=== PATIENT | female | born 1995 | race Caucasian/White ===

== ENCOUNTER 2018-04-21 10:55 | Inpatient (IN) | payer MEDICAID ==
[~2018-04-21] VITALS: Ht 157.5 cm; Wt 70.3 kg
[2018-04-21] MEDS ORDERED: SODIUM CHLORIDE 0.9% 500 ML IVB ONE (11:32)
[2018-04-21] MEDS ORDERED: MORPHINE SULF INJ 2 MG/ML SYRINGE 1ML IV ONE ×2 (11:45)
[2018-04-21] MEDS ORDERED: ONDANSETRON HCL 4 MG/2 ML VIAL IV ONE (11:45)
[2018-04-21 11:47] LABS: Urine Bacteria FEW /hpf (None Seen); Urine Blood TRACE /uL (Negative); Urine Mucus FEW (None Seen); Urine Specific Gravity 1.017 (1.001-1.035); Urine WBC 6 /hpf (0 - 5)
[2018-04-21 11:57] LABS: Basophils # (auto) 0 uL; Basophils % (auto) 0.1 % (0.0-2.0); Eosinophils # (auto) 0 uL; Hematocrit 38.7 % (36.0-46.0); Hemoglobin 12.9 g/dL (12.2-16.2); Lymphocytes # (auto) 0.5 uL; Lymphocytes % (auto) 4.6 % (10.0-50.0); Mean Corpuscular Hemoglobin 28.2 pg (28.0-32.0); Mean Corpuscular Hgb Conc. 33.4 g/dL (32.0-36.0); Mean Corpuscular Volume 84.4 fL (80.0-100.0); Monocytes # (auto) 0.7 uL; Monocytes % (auto) 6.2 % (0.0-12.0); Neutrophils # (auto) 10.2 uL; Neutrophils % (auto) 89.1 % (37.0-80.0); Platelet Count (auto) 179 10^3/uL (140-450); Red Blood Cells 4.59 10^6/uL (4.0-5.20); Red Cell Distribution Width 17.8 % (11.8-14.3); White Blood Cell 11.5 10^3/uL (4.4-10.8)
[2018-04-21 13:01] LABS: Alkaline Phosphatase 68 U/L (45-117); Anion Gap 7 (5-15); BUN/Creatinine Ratio 13.3; Blood Urea Nitrogen 10 mg/dL (7-18); Carbon Dioxide 22 mmol/L (21-32); Chloride 105 mmol/L (98-107); GFR African American 124 mL/min; GFR Non-African American 103 mL/min; Glucose 89 mg/dL (74-106); Potassium 3.2 mmol/L (3.5-5.1); Sodium 134 mmol/L (136-145)
[2018-04-21 13:02] LABS: Alanine Aminotransferase 21 U/L (13-56); Aspartate Aminotransferase 16 U/L (15-37); Bilirubin, Total 0.3 mg/dL (0.2-1.0); Calcium 7.7 mg/dL (8.5-10.1); Lipase 43 U/L (73-393); Magnesium 1.7 mg/dL (1.6-2.6); Total Protein 7.1 g/dL (6.4-8.2)
[2018-04-21] MEDS ORDERED: SODIUM CHLORIDE 0.9% 1,000 ML IV SCH (13:41)
[2018-04-21] MEDS ORDERED: MORPHINE SULF INJ 2 MG/ML SYRINGE 1ML IV PRN (13:45)
[2018-04-21] MEDS ORDERED: cefTRIAXone 1GM/10ml IVPUSH 10 ML IV ONE (13:45)
[2018-04-21] MEDS ORDERED: NITROGLYCERIN 0.4 MG SL TAB SL PRN (13:45)
[2018-04-21] MEDS ORDERED: ACETAMINOPHEN 500 MG TAB PO PRN (13:45)
[2018-04-21] MEDS ORDERED: PIPERACILLIN-TAZOB 3.375GM 100 ML IV ONE (14:00)
[2018-04-21] MEDS: FAMOTIDINE (10MG/ML) 2ML VL IV SCH (14:17)
[2018-04-21] MEDS: MORPHINE SULF INJ 2 MG/ML SYRINGE 1ML IV PRN ×2 (14:17→19:38)
[2018-04-21] MEDS: ONDANSETRON HCL 4 MG/2 ML VIAL IV PRN ×2 (14:17→23:38)
[2018-04-21] MEDS: metroNIDAZOLE 500MG/100ML 100 ML IV SCH ×2 (14:17→20:03)
[2018-04-21 14:30] LABS: Hematocrit 37.6 % (36.0-46.0); Hemoglobin 12.6 g/dL (12.2-16.2)
[2018-04-21] MEDS ORDERED: SOD CHL 0.9%/ KCL 20MEQ 1,000 ML IV SCH ×2 (15:00→21:15)
[2018-04-21 16:54] VITALS: BP 98/51
[2018-04-21] MEDS: PIPERACILLIN-TAZOB 3.375GM 100 ML IV SCH (17:48)
[2018-04-21 18:37] VITALS: BP 98/51
[2018-04-21] MEDS ORDERED: CLINIMIX PER PHARMACY 0 ML IV SCH (18:45)
[2018-04-21 20:31] LABS: Hematocrit 36.5 % (36.0-46.0); Hemoglobin 12.2 g/dL (12.2-16.2)
[2018-04-21] MEDS ORDERED: AMINO ACID INFUSION IN D10W 1,000 ML IV NR (21:15)
[2018-04-21] MEDS ORDERED: DEXTROSE (50%) 50ML SYRG IV SCH (21:15)
[2018-04-21] MEDS ORDERED: MAGNESIUM SULFATE 1GM/100ML 100 ML IV ONE (21:30)
[2018-04-21 21:45] VITALS: BP 99/58
[2018-04-21] MEDS: POTASSIUM CHL 20MEQ/100ML 100 ML IV SCH (22:42)
[2018-04-21] MEDS: TEMAZEPAM 15 MG CAP PO PRN (23:11)
[2018-04-21] MEDS: HYDROcodone-ACET 5/325MG TAB PO PRN (23:38)
[2018-04-22] MEDS: PIPERACILLIN-TAZOB 3.375GM 100 ML IV SCH ×2 (00:19→06:04)
[2018-04-22] MEDS: ACCU-CHEK COMFORT CURVE STRIP VI SCH ×4 (00:35→17:53)
[2018-04-22] MEDS: POTASSIUM CHL 20MEQ/100ML 100 ML IV SCH (01:54)
[2018-04-22] MEDS: FAMOTIDINE (10MG/ML) 2ML VL IV SCH ×2 (01:56→15:08)
[2018-04-22] MEDS: metroNIDAZOLE 500MG/100ML 100 ML IV SCH ×4 (01:57→21:04)
[2018-04-22 02:26] LABS: Hematocrit 37.3 % (36.0-46.0); Hemoglobin 12.2 g/dL (12.2-16.2)
[2018-04-22 05:00] VITALS: BP 87/52
[2018-04-22] MEDS: InsuLIN REG 1unit/0.01ml Soln (100units/ml) SC SCH ×4 (06:00→17:53)
[2018-04-22 07:13] LABS: Basophils # (auto) 0 uL; Basophils % (auto) 0.2 % (0.0-2.0); Eosinophils # (auto) 0.1 uL; Eosinophils % (auto) 2.3 % (0.0-7.0); Hematocrit 31.8 % (36.0-46.0); Hemoglobin 10.8 g/dL (12.2-16.2); Lymphocytes % (auto) 15.9 % (10.0-50.0); Mean Corpuscular Hemoglobin 28.8 pg (28.0-32.0); Mean Corpuscular Hgb Conc. 34.2 g/dL (32.0-36.0); Mean Corpuscular Volume 84.3 fL (80.0-100.0); Monocytes # (auto) 0.8 uL; Monocytes % (auto) 12.2 % (0.0-12.0); Neutrophils # (auto) 4.3 uL; Neutrophils % (auto) 69.4 % (37.0-80.0); Nucleated Red Blood Cells % 0.1 %; Platelet Count (auto) 160 10^3/uL (140-450); Red Blood Cells 3.77 10^6/uL (4.0-5.20); Red Cell Distribution Width 18.1 % (11.8-14.3); White Blood Cell 6.2 10^3/uL (4.4-10.8)
[2018-04-22 07:40] LABS: Albumin 2.4 g/dL (3.4-5.0); BUN/Creatinine Ratio 9.7; Bilirubin, Total 0.1 mg/dL (0.2-1.0); Calcium 7.2 mg/dL (8.5-10.1); Magnesium 2.4 mg/dL (1.6-2.6); Phosphorus 1.6 mg/dL (2.5-4.90); Potassium 4.6 mmol/L (3.5-5.1); Pre Albumin 8.8 mg/dL (20.0-40.0); Total Protein 5.7 g/dL (6.4-8.2)
[2018-04-22 08:00] VITALS: BP 91/57
[2018-04-22 09:00] VITALS: BP 91/57
[2018-04-22] MEDS ORDERED: cefTRIAXone 1GM/10ml IVPUSH 10 ML IV SCH (09:00)
[2018-04-22] MEDS: HYDROcodone-ACET 5/325MG TAB PO PRN (09:22)
[2018-04-22] MEDS: ONDANSETRON HCL 4 MG/2 ML VIAL IV PRN (09:34)
[2018-04-22] MEDS ORDERED: SODIUM PHOSPHATES 24 MEQ in SODIUM CHL 0.9% 100 ML IV ONE (10:45)
[2018-04-22] MEDS ORDERED: SODIUM PHOSPHATES 40 MEQ in D5W 5% 250 ML IV ONE (11:30)
[2018-04-22] MEDS: D5W/SOD CHLO 0.9% 1,000 ML IV SCH ×2 (11:41→22:07)
[2018-04-22] MEDS: LORazepam 0.5 MG TAB PO PRN ×2 (11:56→21:17)
[2018-04-22 13:00] VITALS: BP 93/49
[2018-04-22] MEDS: KETOROLAC TROMETH 30 MG/ML 1ML VIAL IV PRN ×2 (15:08→21:16)
[2018-04-22 17:00] VITALS: BP 88/52
[2018-04-22] MEDS ORDERED: HYDROcodone-ACET 5/325MG TAB PO ONE (18:45)
[2018-04-22] MEDS ORDERED: CLINIMIX PER PHARMACY IV NR ×5 (20:00)
[2018-04-22 22:00] VITALS: BP 100/58
[2018-04-22] MEDS: TEMAZEPAM 15 MG CAP PO PRN (22:08)
[2018-04-23] MEDS: FAMOTIDINE (10MG/ML) 2ML VL IV SCH ×2 (01:49→15:46)
[2018-04-23] MEDS: metroNIDAZOLE 500MG/100ML 100 ML IV SCH ×4 (03:48→20:45)
[2018-04-23 05:00] VITALS: BP 101/52
[2018-04-23 05:45] LABS: Basophils # (auto) 0 uL; Basophils % (auto) 0.6 % (0.0-2.0); Eosinophils # (auto) 0.1 uL; Eosinophils % (auto) 3.5 % (0.0-7.0); Lymphocytes # (auto) 1.1 uL; Lymphocytes % (auto) 31.3 % (10.0-50.0); Mean Corpuscular Hemoglobin 28.1 pg (28.0-32.0); Mean Corpuscular Hgb Conc. 33.4 g/dL (32.0-36.0); Mean Corpuscular Volume 84.2 fL (80.0-100.0); Monocytes # (auto) 0.4 uL; Monocytes % (auto) 10.4 % (0.0-12.0); Neutrophils % (auto) 54.2 % (37.0-80.0); Nucleated Red Blood Cells % 0.2 %; Platelet Count (auto) 165 10^3/uL (140-450); Red Blood Cells 3.92 10^6/uL (4.0-5.20); Red Cell Distribution Width 18.4 % (11.8-14.3); White Blood Cell 3.6 10^3/uL (4.4-10.8)
[2018-04-23 06:25] LABS: Albumin 2.6 g/dL (3.4-5.0); BUN/Creatinine Ratio 13.5; Bilirubin, Total 0.3 mg/dL (0.2-1.0); Calcium 7.8 mg/dL (8.5-10.1); Magnesium 2.2 mg/dL (1.6-2.6); Phosphorus 3.1 mg/dL (2.5-4.90); Potassium 3.3 mmol/L (3.5-5.1); Total Protein 5.9 g/dL (6.4-8.2)
[2018-04-23] MEDS: InsuLIN REG 1unit/0.01ml Soln (100units/ml) SC SCH ×4 (06:51→17:07)
[2018-04-23] MEDS: D5W/SOD CHLO 0.9% 1,000 ML IV SCH (06:52)
[2018-04-23] MEDS: ACCU-CHEK COMFORT CURVE STRIP VI SCH ×4 (06:52→16:45)
[2018-04-23 08:00] VITALS: BP 97/60
[2018-04-23] MEDS: LORazepam 0.5 MG TAB PO PRN ×2 (08:35→17:52)
[2018-04-23 08:42] VITALS: BP 97/60
[2018-04-23] MEDS: MORPHINE SULFATE 4 MG/ML SYR/VIAL IV PRN ×3 (09:43→21:04)
[2018-04-23] MEDS: POTASSIUM CHL 20 Meq TABLET PO SCH ×2 (09:43→20:45)
[2018-04-23] MEDS: SODIUM CHLORIDE 0.9% 1,000 ML IV SCH ×2 (09:44→20:43)
[2018-04-23 12:22] VITALS: BP 98/60
[2018-04-23] MEDS: KETOROLAC TROMETH 30 MG/ML 1ML VIAL IV PRN (13:25)
[2018-04-23 16:51] VITALS: BP 97/51
[2018-04-23] MEDS ORDERED: CLINIMIX PER PHARMACY IV NR ×6 (20:00)
[2018-04-23 21:55] VITALS: BP 106/65
[2018-04-23] MEDS: TEMAZEPAM 15 MG CAP PO PRN (23:22)
[2018-04-24] MEDS: InsuLIN REG 1unit/0.01ml Soln (100units/ml) SC SCH ×2 (00:59→06:00)
[2018-04-24] MEDS: ACCU-CHEK COMFORT CURVE STRIP VI SCH ×2 (01:00→06:10)
[2018-04-24] MEDS: FAMOTIDINE (10MG/ML) 2ML VL IV SCH ×2 (01:45→01:56)
[2018-04-24] MEDS: metroNIDAZOLE 500MG/100ML 100 ML IV SCH (01:56)
[2018-04-24] MEDS: LORazepam 0.5 MG TAB PO PRN ×3 (02:00→18:15)
[2018-04-24] MEDS: SODIUM CHLORIDE 0.9% 1,000 ML IV SCH ×2 (02:14→14:53)
[2018-04-24 05:08] VITALS: BP 137/76
[2018-04-24 07:38] LABS: Basophils # (auto) 0 uL; Basophils % (auto) 0.3 % (0.0-2.0); Eosinophils # (auto) 0.1 uL; Eosinophils % (auto) 1.6 % (0.0-7.0); Hematocrit 35.7 % (36.0-46.0); Hemoglobin 11.7 g/dL (12.2-16.2); Lymphocytes # (auto) 0.9 uL; Lymphocytes % (auto) 20.4 % (10.0-50.0); Mean Corpuscular Hemoglobin 27.5 pg (28.0-32.0); Mean Corpuscular Hgb Conc. 32.8 g/dL (32.0-36.0); Mean Corpuscular Volume 83.9 fL (80.0-100.0); Monocytes # (auto) 0.4 uL; Monocytes % (auto) 7.8 % (0.0-12.0); Neutrophils # (auto) 3.2 uL; Neutrophils % (auto) 69.9 % (37.0-80.0); Nucleated Red Blood Cells % 0.1 %; Platelet Count (auto) 185 10^3/uL (140-450); Red Blood Cells 4.26 10^6/uL (4.0-5.20); Red Cell Distribution Width 18.2 % (11.8-14.3); White Blood Cell 4.6 10^3/uL (4.4-10.8)
[2018-04-24 07:54] LABS: Albumin 2.8 g/dL (3.4-5.0); BUN/Creatinine Ratio 12.5; Bilirubin, Total 0.2 mg/dL (0.2-1.0); Magnesium 1.8 mg/dL (1.6-2.6); Phosphorus 2.9 mg/dL (2.5-4.90); Potassium 4.1 mmol/L (3.5-5.1); Total Protein 6.6 g/dL (6.4-8.2)
[2018-04-24 09:00] VITALS: BP 101/60
[2018-04-24] MEDS: MORPHINE SULFATE 4 MG/ML SYR/VIAL IV PRN ×3 (09:50→20:37)
[2018-04-24] MEDS: ONDANSETRON HCL 4 MG/2 ML VIAL IV PRN ×2 (09:50→14:51)
[2018-04-24 13:09] VITALS: BP 100/58
[2018-04-24] MEDS: Ensure Enlive Strawberry 8oz Bottle PO SCH ×2 (13:45→17:42)
[2018-04-24 16:47] VITALS: BP 107/68
[2018-04-24 22:00] VITALS: BP 111/73
[2018-04-24] MEDS: TEMAZEPAM 15 MG CAP PO PRN (23:05)
[2018-04-24] MEDS: KETOROLAC TROMETH 30 MG/ML 1ML VIAL IV PRN (23:13)
[2018-04-25] MEDS: FAMOTIDINE (10MG/ML) 2ML VL IV SCH (01:45)
[2018-04-25] MEDS: SODIUM CHLORIDE 0.9% 1,000 ML IV SCH ×2 (03:39→11:15)
[2018-04-25 05:29] VITALS: BP 117/82
[2018-04-25] MEDS: LORazepam 0.5 MG TAB PO PRN (06:05)
[2018-04-25 07:24] LABS: BUN/Creatinine Ratio 17.9; Basophils # (auto) 0 uL; Basophils % (auto) 0.4 % (0.0-2.0); Calcium 7.9 mg/dL (8.5-10.1); Eosinophils # (auto) 0.1 uL; Eosinophils % (auto) 2.5 % (0.0-7.0); Hematocrit 35.1 % (36.0-46.0); Hemoglobin 11.9 g/dL (12.2-16.2); Lymphocytes # (auto) 1.5 uL; Lymphocytes % (auto) 26.3 % (10.0-50.0); Mean Corpuscular Hemoglobin 28.3 pg (28.0-32.0); Mean Corpuscular Hgb Conc. 33.8 g/dL (32.0-36.0); Mean Corpuscular Volume 83.9 fL (80.0-100.0); Monocytes # (auto) 0.6 uL; Monocytes % (auto) 10.5 % (0.0-12.0); Neutrophils # (auto) 3.4 uL; Neutrophils % (auto) 60.3 % (37.0-80.0); Nucleated Red Blood Cells % 0.1 %; Platelet Count (auto) 186 10^3/uL (140-450); Potassium 3.7 mmol/L (3.5-5.1); Red Blood Cells 4.19 10^6/uL (4.0-5.20); Red Cell Distribution Width 18.2 % (11.8-14.3); White Blood Cell 5.6 10^3/uL (4.4-10.8)
[2018-04-25 08:00] VITALS: BP 118/71
[2018-04-25] MEDS: Ensure Enlive Strawberry 8oz Bottle PO SCH (08:27)
[2018-04-25 08:36] VITALS: BP 118/71
[2018-04-25] MEDS ORDERED: LEVOFLOXACIN 500 MG TAB PO SCH (09:00)
[2018-04-25 10:46] VITALS: BP 120/74
== END 2018-04-25 11:40 | disposition home or self-care (01) | DRG 245 ==
LOC: EDBD 10:55 → ER 10:55 → TELE 10:56 → TELE-EAST 14:56
PROVIDERS: ADMIT Internal Medicine; ATTEND Internal Medicine
DX: K51.00 Ulcerative (chronic) pancolitis without complications (principal); E43 Unspecified severe protein-calorie malnutrition; N39.0 Urinary tract infection, site not specified; E87.1 Hypo-osmolality and hyponatremia; E87.6 Hypokalemia; F17.210 Nicotine dependence, cigarettes, uncomplicated; Z80.1 Family history of malignant neoplasm of trachea, bronchus and lung; Z80.3 Family history of malignant neoplasm of breast; Z71.3 Dietary counseling and surveillance
CPT/HCPCS: 36415; 74176; 80048; 80053; 81001; 81025; 82040; 82962; 83520; 83690; 83735; 84100; 84478; 85014; 85018; 85025; 85045; 85652; 86256; 87040; 87045; 87086; 87493; 87899; 93005; 93306; 94761; 96361; 96374; 96375; 96376; A6257; J0696; J1885; J2405; J2543; J3480; J3490; J7042